=== PATIENT | male | born 1980 | race American Indian/Alaskan Native ===

== ENCOUNTER 2021-09-12 09:12 | Day surgery (SDC) | payer OTHER ==
[~2021-09-12 09:12] MED LIST: ceFAZolin/STERILE WATER 2 GM/20 ML SYRINGE IV NR
[2021-09-12] MEDS ORDERED: LACTATED RINGERS 1,000 ML ONE (09:17)
[2021-09-12] MEDS ORDERED: BUPIVACAINE/PF (0.25%) 2.5 MG/ML 30 ML VIAL INFILTRATI ONE ×2 (09:41→10:27)
[2021-09-12] MEDS ORDERED: LIDOCAINE (1%) 10 MG/1 ML VIAL 20 ML MDV ONE (09:41)
[2021-09-12] MEDS ORDERED: propofoL 200 MG/20 ML VIAL IV ONE ×2 (09:45→10:13)
[2021-09-12] MEDS ORDERED: LIDOCAINE MPF (2%) 20 MG/1 ML VIAL 5 ML ONE (09:45)
--- NOTE | 2021-09-12 09:51 | Anesthesia Day of Surgery ---
Anesthesia Day of Surgery - Day of Surgery Patient Examined: Yes Patient H&P Reviewed: Yes Patient is NPO: Yes
--- NOTE | 2021-09-12 09:58 | Anesthesia Day of Surgery ---
Anesthesia Day of Surgery - Day of Surgery Patient Examined: Yes Patient H&P Reviewed: Yes Patient is NPO: Yes
[2021-09-12] MEDS ORDERED: LACTATED RINGERS 1,000 ML IV SCH (10:00)
[2021-09-12] MEDS ORDERED: SODIUM CHLORIDE 0.9% 1000 ML 1,000 ML IV SCH (10:00)
--- NOTE | 2021-09-12 10:00 | Anesthesia Consultation ---
Anesthesia Consult and Med Hx Date of service: 09/12/21 - Pre-Operative Health Status Proposed Anesthetic Plan: MAC (GA if needed) - Cardiovascular System Hx Hypertension: Yes - Other Systems Hx Obesity: Yes
--- NOTE | 2021-09-12 10:01 | Anesthesia Consultation ---
Anesthesia Consult and Med Hx Date of service: 09/12/21 - Airway Anesthetic Teeth Evaluation: Good (2 missing molars - upper right and left) ROM Head & Neck: Adequate Mental/Hyoid Distance: Adequate Mallampati Class: Class II Intubation Access Assessment: Probably Good - Pulmonary Exam CTA: Yes - Cardiac Exam Cardiac Exam: RRR - Pre-Operative Health Status ASA Pre-Surgery Classification: ASA3 Proposed Anesthetic Plan: MAC - Pulmonary Hx Smoking: No Hx Asthma: No Hx Sleep Apnea: Yes (no CPAP) - Cardiovascular System Hx Hypertension: Yes (no currently on medication) Hx Heart Attack/AMI: No - Central Nervous System Hx Neuromuscular Disorder: No - Gastrointestinal Hx Gastroesophageal Reflux Disease: Yes (occasional) - Endocrine Hx Renal Disease: No Hx Liver Disease: No Hx Non-Insulin Dependent Diabetes: No Hx Thyroid Disease: No - Hematic Hx Anemia: No - Other Systems Hx Alcohol Use: No Hx Substance Use: No Hx Cancer: No Hx Obesity: Yes (BMI 35) - Additional Comments Anesthesia Medical History Comments: no hx of anesthesia complications
[2021-09-12] MEDS ORDERED: MIDAZOLAM 2 MG/2 ML INJ ONE (10:02)
[2021-09-12] MEDS ORDERED: LIDOCAINE (1%) 10 MG/1 ML VIAL 20 ML MDV INFILTRATI ONE (10:27)
[2021-09-12] MEDS ORDERED: ONDANSETRON 4 MG/2 ML INJ IV PRN (10:28)
[2021-09-12] MEDS ORDERED: SODIUM CHLORIDE 0.9% IRR 1,500 ML BOTTLE IR ONE (10:28)
[2021-09-12] MEDS ORDERED: HYDROmorphone 1 MG/1 ML INJ IV PRN ×2 (10:28)
--- NOTE | 2021-09-12 10:45 | Short Stay Summary ---
Short Stay Documentation Date of service: 09/12/21 - History Principal diagnosis: SOFT TISSUE MASS LEFT ABDOMINAL WALL H&P: obtained from office - Allergies and Medications Current Medications: Allergies No Known Allergies Allergy (Unverified 08/31/21 17:27) Home Medications Medication Instructions Recorded Confirmed Last Taken Type hydroCHLOROthiazide [Hctz] 12.5 mg PO QDAY 08/31/21 08/31/21 Unknown History Active Medications Cefazolin Sodium (Cefazolin/Sterile Water 2 Gm/20 Ml Syringe) 2 gm IV PREOP NR Stop: 09/12/21 23:00 Hydromorphone HCl (Hydromorphone 1 Mg/1 Ml Inj) 0.25 mg IV Q10MIN PRN PRN Reason: Pain, Moderate (4-6) Hydromorphone HCl (Hydromorphone 1 Mg/1 Ml Inj) 0.5 mg IV Q10MIN PRN PRN Reason: Pain , Severe (7-10) Sodium Chloride (Nacl 0.9% 1000 Ml) 1,000 mls @ 75 mls/hr IV DIRECT ASPEN Stop: 09/13/21 09:59 Lactated Ringer's (Lactated Ringers) 1,000 mls @ 75 mls/hr IV DIRECT ASPEN Last Admin: 09/12/21 10:05 Dose: 75 mls/hr Ondansetron HCl (Ondansetron 4 Mg/2 Ml Inj) 4 mg IV ONCE PRN PRN Reason: Nausea And Vomiting - Brief post op/procedure progress note Date of procedure: 09/12/21 Pre-op diagnosis: soft tissue mass left abdominal wall Post-op diagnosis: same Procedure: Excision soft tissue mass left abdominal wall Anesthesia: MAC, local Findings: 4 cm exophytic soft tissue mass of the left anterior abdominal wall Surgeon: SHERIF SANDOVAL Estimated blood loss: minimal Pathology: list (Soft tissue mass left abdominal wall) Specimen disposition: to lab Condition: stable - Hospital course Hospital course: Please see printed discharge instructions - Disposition Condition at discharge: Good Disposition: 01 HOME / SELF CARE / HOMELESS Short Stay Discharge Plan Activity: no restrictions Diet: regular Additional Instructions: See written instructions provided to officer Follow up with: PRIMARY CARE, [Primary Care Provider] - 7 Days
[2021-09-12 11:58] VITALS: BP 145/94
--- NOTE | 2021-09-12 12:19 | Post Anesthesia Evaluation ---
- Post Anesthesia Evaluation Patient Participated: Yes Airway Patent: Yes Stable Respiratory Function: Yes Nausea/Vomiting: No Temp > 96.8F: Yes Pain Manageable: Yes Adequeate Hydration: Yes Anesthesia Complications: No Block Receding Appropriately: Not Applicable Patient on Ventilator: No
--- NOTE | 2021-09-18 11:04 | Operative Report ---
Operative Report Operative Report: Date of procedure: 09/12/21 Pre-op diagnosis: soft tissue mass left abdominal wall Post-op diagnosis: same Procedure: Excision soft tissue mass left abdominal wall Anesthesia: MAC, local Findings: 4 cm exophytic soft tissue mass of the left anterior abdominal wall Surgeon: SHERIF SANDOVAL Estimated blood loss: minimal Pathology: list (Soft tissue mass left abdominal wall) Specimen disposition: to lab Condition: stable Hospital course: Please see printed discharge instructions Condition at discharge: Good Disposition: 01 HOME / SELF CARE HPI and indication: Patient is a 40-year-old male who presented to the surgery clinic for evaluation of a mass of his left abdominal wall. The patient had a exophytic mass of his left upper abdominal wall without evidence of infection. The mass had been growing in size and was becoming bothersome to the patient. He wanted to be evaluated for excision. All risks, benefits, alternatives to surgery were discussed with the patient and questions answered. Consent was obtained. Procedure in detail: Patient was identified in the preoperative area, taken back to the operating room and placed on the operating room table in supine position. The operative site had been marked in the preoperative area. After anesthesia was induced the left upper abdomen was prepped and draped in usual sterile fashion and a timeout performed. Local anesthetic was infiltrated into the skin at the intended incision site. An elliptical incision was made around the base of the mass using a 15 blade. Dissection was carried down to skin and subcutaneous tissue using electrocautery. The mass was excised completely and measured approximately 4 cm and was passed off the table as a specimen. The subcutaneous tissue was irrigated and hemostasis very carefully ensured. Subcutaneous flaps were created in order to approximate the skin. The deep dermal layer was approximated using interrupted 3-0 Vicryl stitches. The skin was approximated using 4-0 Monocryl subcuticular stitches and skin glue. At the end of the case all sponge, instrument, sharp counts were correct x2. The patient was awoken from anesthesia and taken to PACU in stable condition.
== END 2021-09-12 11:45 | disposition home or self-care (01) ==
LOC: OR 09:12 → EEVIPCON 11:15 → OR 11:45
PROVIDERS: ATTEND Surgery
DX: R19.09 Other intra-abdominal and pelvic swelling, mass and lump (principal); L72.0 Epidermal cyst; I10 Essential (primary) hypertension; G47.30 Sleep apnea, unspecified; K21.9 Gastro-esophageal reflux disease without esophagitis; E66.9 Obesity, unspecified; Z79.899 Other long term (current) drug therapy; Z68.35 Body mass index [BMI] 35.0-35.9, adult
CPT/HCPCS: 11404; 12032; 88307; J0690; J1170; J2250; J2704; J3490; J7120